=== PATIENT | male | born 1970 | race Caucasian/White ===

== ENCOUNTER 2023-06-30 12:48 | Outpatient (CLI) | payer OTHER, SELFPAY ==
--- NOTE | ~2023-06-30 | US_ITS ---
EXAMINATION: US soft tissue groin RT DATE: 06/30/2023 13:37 INDICATION: Right inguinal hernia. TECHNIQUE: Multiple grayscale and Doppler ultrasound images of the right groin were obtained. COMPARISON: CT abdomen and pelvis 12/18/2014 FINDINGS: There is a 9 x 5 x 6 mm hypoechoic irregular subcutaneous mass in right inguinal region. IMPRESSION: 1. No hernia. 2. 9 mm subcutaneous mass in right inguinal region, likely inflammation. Reviewed, dictated and finalized at location E.
== END 2023-06-30 12:49 ==
PROVIDERS: Visit Provider Surgery
DX: K40.90 Unilateral inguinal hernia, without obstruction or gangrene, not specified as recurrent (principal)
CPT/HCPCS: 76882